=== PATIENT | female | born 1960 | race African-American/Black ===

== ENCOUNTER → 2018-12-14 | Outpatient (CLI) | payer OTHER ==
[~2018-12-14] MED LIST: BAYER CHEWABLE81 MG PO; CLONIDINE HCL0.2 M2 PO; COLACE100 MG PO; DIOVAN160 MG PO; FERRO-TIME325 MG PO; HYDROCHLOROTH12.5 MG PO; HYDROCHLOROTHIA25 M2 PO; HYDROCODONE-AC120 ML PO; IRON256 MG; LISINOPRIL20 MG PO; LIVALO2 MG PO; MULTIVITAMINS1 EAC7 PO; NORVASC10 MG PO; PHENERGAN 25 MG25 M1 PO; PREDNISONE 20 M20 MG PO; PREDNISONE50 MG PO; PRILOSEC20 MG PO; ZANTAC 150MG T150 M1 PO; ZOFRAN ODT4 MG PO
--- NOTE | 2018-12-14 15:38 | 2DMMODE ---
[facility] [employer] [address] 2 D/M-MODE ECHOCARDIOGRAM Name: ROMIE MONTELONGO Room #: REG [facility]#: [id number] ������������� Admission: 12/14/18 ������������� Attend Phys: Khanh Hurtado, Discharge: ��� ������������� ��� Date of : 56 Date of Service: 12/14/18 1537 �� Report #: [id number] �������� ��������������������������������������������[id number] THIS REPORT FOR: //name// APPROVED REPORT Study performed: 12/14/2018 14:06:36 EXAM: Comprehensive 2D, Doppler, and color-flow Echocardiogram Patient Location: Out-Patient Room #: Echo lab 1 Status: routine BSA: 2.28 HR: 57 bpm BP: 134/78 mmHg Rhythm: NSR Other Information Study Quality: Good Indications Pulmonary Hypertension Hypertension/HDD 2D Dimensions RVDd: 36.00 mm IVSd: 13.41 (7-11mm) LVOT Diam: 20.74 (18-24mm) LVDd: 43.94 mm PWd: 13.41 (7-11mm) Ascending Ao: 25.71 (22-36mm) LVDs: 24.39 (25-40mm) Aortic Root: 27.69 mm IVC: 12.00 mm Volumes Left Atrial Volume (Systole) Single Plane 4CH: 66.24 mL Single Plane 2CH: 56.30 mL LA ESV Index: 30.00 mL/m2 Aortic Valve AoV Peak Juan.: 1.47 m/s AO Peak Gr.: 8.63 mmHg LVOT Max P.86 mmHg LVOT Max V: 1.31 m/s SOL Vmax: 3.01 cm2 Mitral Valve E/A Ratio: 1.3 MV Decel. Time: 157.78 ms [facility] [place] [address] [place] [address] 2 D/M-MODE ECHOCARDIOGRAM Name: ROMIE MONTELONGO Room #: [facility]#: [id number] ������������� Admission: 12/14/18 ������������� Attend Phys: Khanh Hurtado, Discharge: ��� ������������� ��� Date of : 56 Date of Service: 12/14/18 1537 �� Report #: [id number] �������� ��������������������������������������������[id number] MV E Max Juan.: 1.10 m/s MV A Juan.: 0.84 m/s MV PHT: 45.76 ms IVRT: 96.89 ms Pulmonary Valve PV Peak Juan.: 0.96 m/s PV Peak Gr.: 3.66 mmHg Pulmonary Vein P Vein S: 0.55 m/s P Vein A: 0.24 m/s P Vein D: 0.34 m/s P Vein A Dur.: 129.2 msec P Vein S/D Ratio: 1.62 Tricuspid Valve TR Peak Juan.: 3.03 m/s TR Peak Gr.: 36.62 mmHg PA Pressure: 42.00 mmHg Left Ventricle The left ventricle is normal size. There is normal LV segmental wall motion. Mild concentric left ventricular hypertrophy. The left ventricular systolic function is normal. The left ventricular ejection fraction is within the normal range. LVEF is 60-65%. The left ventricular diastolic function is normal. Right Ventricle The right ventricle is normal size. The right ventricular systolic function is normal. Atria The left atrium size is normal. Right atrium is dilated. Aortic Valve The aortic valve is normal in structure. No aortic regurgitation is present. There is no aortic valvular stenosis. Mitral Valve Mild mitral annular calcification Mild mitral regurgitation. No evidence of mitral valve stenosis. Tricuspid Valve The tricuspid valve is normal in structure. There is moderate tricuspid regurgitation. Estimated PAP 40 mmHg. There is moderate pulmonary hypertension. Pulmonic Valve [address] [address] 2 D/M-MODE ECHOCARDIOGRAM Name: ROMIE MONTELONGO Brad [facility]: [facility] [id number] ������������� Admission: 12/14/18 ������������� Attend Phys: Khanh Hurtado, Discharge: ��� ������������� ��� Date of : 56 Date of Service: 12/14/18 1537 �� Report #: [id number] �������� ��������������������������������������������[id number] The pulmonary valve is normal in structure. Trace pulmonic regurgitation. Great Vessels The aortic root is normal in size. IVC is normal in size and collapses >50% with inspiration. Pericardium Small pericardial effusion. <Conclusion> The left ventricular systolic function is normal. There is normal LV segmental wall motion. LVEF is 60-65%. Normal diastolic function The aortic valve is normal in structure. No aortic regurgitation or stenosis Mild mitral annular calcification. Mild mitral regurgitation. There is moderate tricuspid regurgitation. Estimated pulmonary artery pressure of 40 mmHg. Small pericardial effusion. ��������������������������������������������� <ELECTRONICALLY SIGNED> ���������������������������������������� By: Jv Wiseman MD, [facility] ��������������������������������������������� 12/14/18 1537 [id number] Jv Wiseman MD, FACC /INF
== END ==
LOC: CAT 12-02 16:06 → CV 12-02 16:10
DX: I08.1 Rheumatic disorders of both mitral and tricuspid valves (principal); I11.9 Hypertensive heart disease without heart failure; J98.4 Other disorders of lung; I27.20 Pulmonary hypertension, unspecified; Z88.5 Allergy status to narcotic agent; Z88.8 Allergy status to other drugs, medicaments and biological substances; Z91.013 Allergy to seafood

== ENCOUNTER → 2020-05-17 | Outpatient (CLI) | payer BC, OTHER ==
--- NOTE | 2020-05-17 11:02 | 2DMMODE ---
[facility] [place] [address] 2 D/M-MODE ECHOCARDIOGRAM Name: ROMIE MONTELONGO Brad Room #: REG [facility]#: [id number] Admission: 05/17/20 Attend Phys: Khanh Hurtado MD Discharge: Date of : 56 Report #: [id number] THIS REPORT FOR: cc: Sangita Schmitz,Jv Neumann MD [facility] ~ APPROVED REPORT Study performed: 05/17/2020 09:58:58 EXAM: Comprehensive 2D, Doppler, and color-flow Echocardiogram Patient Location: Out-Patient Room #: Echo lab 1 Status: routine BSA: 2.26 HR: 57 bpm BP: 138/72 mmHg Rhythm: Bradycardia Other Information Study Quality: Good Indications Pulmonary Hypertension Hypertension/HDD 2D Dimensions RVDd: 39.43 mm IVSd: 12.42 (7-11mm) LVOT Diam: 19.91 (18-24mm) LVDd: 44.61 mm PWd: 11.57 (7-11mm) Ascending Ao: 28.29 (22-36mm) LVDs: 29.32 (25-40mm) Aortic Root: 26.02 mm IVC: 21.00 mm Volumes Left Atrial Volume (Systole) Single Plane 4CH: 92.03 mL Single Plane 2CH: 78.79 mL LA ESV Index: 42.00 mL/m2 Aortic Valve AoV Peak Juan.: 1.95 m/s AO Peak Gr.: 15.19 mmHg LVOT Max P.36 mmHg LVOT Max V: 1.26 m/s SOL Vmax: 2.01 cm2 [facility] [address] [place] [address] 2 D/M-MODE ECHOCARDIOGRAM Name: ROMIE MONTELONGO Room #: REG [facility]#: [id number] Admission: 05/17/20 Attend Phys: Khanh Hurtado, Discharge: Date of : 56 Report #: [id number] Mitral Valve E/A Ratio: 1.0 MV Decel. Time: 261.77 ms MV E Max Juan.: 0.95 m/s MV A Juan.: 0.95 m/s MV PHT: 75.91 ms IVRT: 138.41 ms Pulmonary Valve PV Peak Juan.: 1.08 m/s PV Peak Gr.: 4.70 mmHg Pulmonary Vein P Vein S: 0.54 m/s P Vein A: 0.31 m/s P Vein D: 0.44 m/s P Vein A Dur.: 147.6 msec P Vein S/D Ratio: 1.23 Tricuspid Valve TR Peak Juan.: 2.96 m/s TR Peak Gr.: 35.01 mmHg PA Pressure: 45.00 mmHg Left Ventricle The left ventricle is normal size. There is normal LV segmental wall motion. Mild concentric left ventricular hypertrophy. The left ventricular systolic function is normal. The left ventricular ejection fraction is within the normal range. LVEF is 60-65%. Moderate diastolic dysfunction is present (pseudonormal filling). Right Ventricle The right ventricle is normal size. The right ventricular systolic function is normal. Atria Left atrium is dilated. Right atrium is dilated. Aortic Valve The aortic valve is trileaflet, mildly calcified. No aortic regurgitation is present. There is no aortic valvular stenosis. Mitral Valve Mild mitral annular calcification Trace to mild mitral regurgitation. No evidence of mitral valve stenosis. [facility] [place] [place] [address] 2 D/M-MODE ECHOCARDIOGRAM Name: ROMIE MONTELONGO Brad Room #: REG [facility]#: [id number] Admission: 05/17/20 Attend Phys: Khanh Hurtado, Discharge: Date of : 56 Report #: [id number] Tricuspid Valve The tricuspid valve is normal in structure. There is mild to moderate tricuspid regurgitation. Estimated PAP 45 mmHg. There is moderate pulmonary hypertension. Pulmonic Valve The pulmonary valve is normal in structure. There is no pulmonic valvular regurgitation. Great Vessels The aortic root is normal in size. IVC is dilated and collapses >50% with inspiration. Pericardium Small circumferential pericardial effusion. <Conclusion> The left ventricular systolic function is normal. There is normal LV segmental wall motion. LVEF is 60-65%. Moderate diastolic dysfunction Both atria are dilated. The aortic valve is trileaflet, mildly calcified. No aortic regurgitation or stenosis. Mild mitral annular calcification Trace to mild mitral regurgitation. There is mild to moderate tricuspid regurgitation. Estimated pulmonary artery pressure of 45 mmHg. Small circumferential pericardial effusion. <ELECTRONICALLY SIGNED> By: Jv Wiseman MD, FACC 05/17/20 1102 01 01 Jv Wiseman MD, FACC /INF
== END ==
LOC: CAT 09:30
PROVIDERS: ATTEND Internal Medicine
DX: I08.1 Rheumatic disorders of both mitral and tricuspid valves (principal); I27.20 Pulmonary hypertension, unspecified; J84.9 Interstitial pulmonary disease, unspecified; J84.10 Pulmonary fibrosis, unspecified; R91.8 Other nonspecific abnormal finding of lung field